=== PATIENT | female | born 1980 ===

== ENCOUNTER 2017-10-21 16:59 | Emergency (ER) | payer OTHER ==
[2017-10-21] MEDS ORDERED: CYCLOBENZAPRINE HCL 10 MG TABLET (FP) PO ONE (17:15)
[2017-10-21] MEDS ORDERED: IBUPROFEN 600 MG TABLET (FP) PO ONE ×2 (17:15→17:30)
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
[2017-10-21 17:28] VITALS: BP 117/72; PULSE 70; TEMP 98.4; BMI 22.8
[2017-10-21] MEDS ORDERED: CYCLOBENZAPRINE HCL 10 MG TABLET (FP) ONE (17:30)
== END 2017-10-21 19:32 | disposition home or self-care (01) ==
LOC: FER 16:59
DX: S13.4XXA Sprain of ligaments of cervical spine, initial encounter (principal); V43.12XA Car passenger injured in collision with other type car in nontraffic accident, initial encounter; Y93.89 Activity, other specified; Y92.410 Unspecified street and highway as the place of occurrence of the external cause
CPT/HCPCS: 72050-TC-FY; 72070-TC-FY; 99282-25